=== PATIENT | male | born 1940 | race Caucasian/White ===

== ENCOUNTER 2018-09-24 15:00 | Inpatient (IN) | payer MEDICARE, BC ==
[2018-09-24 12:50] VITALS: BMI 25.2
--- NOTE | 2018-10-01 08:36 | HP ---
HISTORY OF PRESENT ILLNESS: The patient is a 77-year-old male with several year history of progressive right hip pain, which has become worse recently. He has had no specific injury. He has had progressive pain despite rest, restriction of activities, anti-inflammatory medications, and cortisone injections. The pain is now interfering with walking, getting dressed, and sleeping. PAST MEDICAL HISTORY: The patient is otherwise in good health. He has a history of polycythemia vera, followed by Dr. Godinez. He has a history of DVT several years ago. He is otherwise in good health. He does have a history of glaucoma. CURRENT MEDICATIONS: Include, 1. Hydroxyurea and anagrelide. 2. Latanoprost drops. 3. 81 mg aspirin. 4. Multivitamins. ALLERGIES: HE HAS NO KNOWN ALLERGIES. FAMILY HISTORY: Otherwise unremarkable. SOCIAL HISTORY: Otherwise unremarkable. REVIEW OF SYSTEMS: Otherwise unremarkable. PHYSICAL EXAMINATION: GENERAL: This is a healthy male. HEENT: Unremarkable. NECK: Supple. CHEST: Clear. HEART: Regular rate and rhythm. ABDOMEN: Soft, nontender. RECTAL: Deferred. GENITAL: Deferred. EXTREMITIES: Pertinent findings with the right hip. Leg lengths appeared to be equal. There is tenderness in the right groin and anterior hip. There is a right antalgic gait. There is decreased range of motion of the right hip and groin pain with internal rotation of the hip. Neurovascular exam is intact. DIAGNOSTIC STUDIES: X-rays of the right hip reveal [id number] collapse of the right hip with definite progression from previous x-rays from 1 year ago. IMPRESSION: 1. Degenerative arthritis right hip. 2. Polycythemia vera. PLAN: Right total hip replacement. The nature of the surgery, length of recovery, and potential complications such as infection, loss of motion, incomplete relief, neurovascular injury, thromboembolic phenomena, leg-length discrepancy, possible transfusion, and need for revision have been discussed in detail. Job ID: [id number]
[2018-10-02 11:40] LABS: Anion Gap 13 mmol/L (10-20); BUN (Urea Nitrogen) 31 mg/dL (8.4-25.7); Calc. Creatinine Clearance 0 mL/min (70-130); Calcium 9.3 mg/dL (7.8-10.44); Carbon Dioxide 22 mmol/L (23-31); Chloride 107 mmol/L (98-107); Estimated GFR-MDRD 74; Glucose 98 mg/dL (83-110); Potassium 4.7 mmol/L (3.5-5.1); Sodium 137 mmol/L (136-145)
[2018-10-02 11:43] LABS: #Basophils 0.1 thou/uL (0.0-0.2); #Eosinphils 0.1 thou/uL (0.0-0.7); #Lymphocytes 0.7 thou/uL (1.20-3.40); #Monocytes 0.5 thou/uL (0.11-0.59); #Neutrophils 4.9 thou/uL (1.40-6.50); %Basophils 1.2 % (0.0-1.0); %Eosinophils 1.5 % (0.0-10.0); %Lymphocytes 11.6 % (21.0-51.0); %Monocytes 7.4 % (0.0-10.0); %Neutrophils 78.3 % (42.0-75.0); Hemoglobin 13.2 g/dL (14.0-18.0); MDiff Complete? YES; Macrocytosis MODERATE=16-30 cells (100X) (0-5/hpf); Mean Corpuscular HGB CONC 34.6 g/dL (32.0-36.0); Mean Corpuscular Hemoglobin 45.3 pg (27.0-31.0); Mean Platelet Volume 7.2 fL (7.4-10.4); Platelet Count 528 thou/uL (130-400); Platelet Morphology Comment Appears Increased; Red Blood Cell (RBC) Count 2.92 mill/uL (4.70-6.10); White Blood Cell (WBC) Count 6.3 thou/uL (4.8-10.8)
[2018-10-05] MEDS ORDERED: Tranexamic Acid 1,000 MG/10 ML VIAL ONE ×2 (07:11→12:11)
[2018-10-05] MEDS ORDERED: Sodium Chloride 0.9% 100 ML ONE (07:11)
[2018-10-05] MEDS ORDERED: Fentanyl 100 MCG/2 ML VIAL ONE ×3 (08:31→12:37)
[2018-10-05] MEDS ORDERED: Midazolam HCl 2 mg/2 ml Vial ONE (08:31)
[2018-10-05] MEDS ORDERED: Bupivacaine/Epinephrine 0.25% 30 ML VIAL ONE (09:27)
[2018-10-05] MEDS ORDERED: Morphine Sulfate 2 MG/ML SYRINGE SLOW IVP PRN (11:25)
[2018-10-05] MEDS ORDERED: PACU-Morphine 4MG/ML VIAL SLOW IVP PRN (11:25)
[2018-10-05] MEDS ORDERED: Meperidine HCl/PF 25 MG/ML VIAL SLOW IVP PRN (11:25)
[2018-10-05] MEDS ORDERED: Promethazine HCl 25 MG/ML VIAL IM PRN ×2 (11:25→12:45)
[2018-10-05] MEDS ORDERED: Ondansetron HCl/PF 4 MG/2 ML Vial IVP PRN (11:25)
[2018-10-05] MEDS ORDERED: HYDROmorphone 2 MG/ML VIAL SLOW IVP PRN (11:25)
[2018-10-05] MEDS ORDERED: Promethazine HCl 25 MG/ML VIAL SLOW IVP PRN ×2 (11:25→14:24)
[2018-10-05] MEDS ORDERED: ePHEDrine 50 MG/ML VIAL ONE (11:35)
[2018-10-05] MEDS ORDERED: Lidocaine 1% PF 5 ML VIAL ONE (11:35)
[2018-10-05] MEDS ORDERED: Rocuronium Bromide 10 MG/ML (10ML VIAL) ONE (11:35)
[2018-10-05] MEDS ORDERED: Ondansetron PF 4 MG/2 ML Vial ONE (11:35)
[2018-10-05] MEDS ORDERED: PROPOFOL 200 MG/20 ML VIAL ONE (11:35)
[2018-10-05] MEDS ORDERED: Dexamethasone 20 MG/5 ML VIAL ONE (11:35)
[2018-10-05] MEDS ORDERED: Tranexamic Acid 1,000 MG in Sodium Chloride 0.9% 100 ML IVPB SCH ×2 (11:45→14:24)
--- NOTE | 2018-10-05 12:04 | RAD ---
RIGHT HIP 2 VIEWS: HISTORY: Total hip arthroplasty FINDINGS: There are recent postoperative changes of total hip arthroplasty in good position and alignment. Soft tissue air is present.
[2018-10-05] MEDS ORDERED: Naloxone HCl 0.4 mg/ml Vial IV PRN (12:45)
[2018-10-05] MEDS ORDERED: Promethazine HCl 25 MG SUPP PR PRN (12:45)
[2018-10-05] MEDS ORDERED: Zolpidem Tartrate 5 MG TAB PO PRN ×2 (12:45→14:24)
[2018-10-05] MEDS ORDERED: Bupivacaine 0.25% 10 ML VIAL EPIDURAL PRN (12:45)
[2018-10-05] MEDS ORDERED: diphenhydrAMINE 50 MG/ML VIAL IM PRN (12:45)
[2018-10-05] MEDS ORDERED: diphenhydrAMINE 25 MG CAP PO PRN ×2 (12:45→14:24)
[2018-10-05] MEDS ORDERED: Naloxone HCl 0.4 mg/ml Vial IVP PRN (12:45)
[2018-10-05] MEDS ORDERED: traMADol HCl 50 MG TAB PO PRN ×3 (12:45→14:24)
[2018-10-05] MEDS ORDERED: Ondansetron PF 4 MG/2 ML Vial IVP PRN ×2 (12:45→14:24)
[2018-10-05] MEDS ORDERED: diphenhydrAMINE 50 MG/ML VIAL IVP PRN (12:45)
[2018-10-05] MEDS ORDERED: Hydrocerin (Eucerin) Cream 120 gm Jar TOP PRN (12:45)
[2018-10-05] MEDS ORDERED: HYDROcodone/Acetaminophen 5/325 mg Tablet PO PRN (12:45)
[2018-10-05] MEDS ORDERED: Acetaminophen 325 MG TAB PO PRN (14:24)
[2018-10-05] MEDS ORDERED: HYDROcodone/Acetaminophen 10/325 mg Tablet PO PRN ×2 (14:24)
[2018-10-05] MEDS ORDERED: Fentanyl 100 MCG/2 ML VIAL SLOW IVP PRN ×2 (14:24)
[2018-10-05] MEDS: CEFAZOLIN 2 GM in Premix Bag 1 BAG IVPB SCH ×2 (15:42→23:23)
[2018-10-05] MEDS: Sodium Chloride 0.9% 1,000 ML IV SCH ×2 (15:43→23:30)
[2018-10-05] MEDS: HYDROcodone/Acetaminophen 5/325 mg Tablet PO PRN (17:01)
--- NOTE | 2018-10-05 17:19 | OP ---
DATE OF PROCEDURE: 10/05/2018 This is Jax Vizcaino PA-C dictating a report for Garett Hart MD. PREOPERATIVE DIAGNOSIS: End-stage severe degenerative bicompartmental osteoarthritis, right hip. POSTOPERATIVE DIAGNOSIS: End-stage severe degenerative bicompartmental osteoarthritis, right hip. PROCEDURE PERFORMED: Press-fit right total hip arthroplasty. SURGEON: Garett Hart MD SEDIMENTATIONIST: Jax Vizcaino PA-C. ANESTHESIA: General via endotracheal tube augmented with indwelling epidural. COMPONENTS USED: [facility] press-fit Trident PSL size 60 mm acetabular shell with a 10-degree polyethylene fixed bearing insert, size 7 press-fit Accolade II hip stem with a Biolox ceramic 36 mm femoral head with a +5 neck length. ESTIMATED BLOOD LOSS: 350. FINDINGS: End-stage severe degenerative bicompartmental disease, tfba-[id number]-vlpr arthrosis, periarticular osteophyte formation, large serous effusion, hypertrophic synovium and capsule. Input was 1200 mL crystalloid. Output was clear yellow urine. There were some little bit of blood on tissue noted. DRAINS: None. SPECIMENS: None. COMPLICATIONS: None. COUNTS: Correct. INDICATIONS FOR SURGERY: aJx is a 77-year-old white male, who has had progressive right hip, groin, and thigh pain and problem with standing and walking for the last 5 to 7 years. He has failed conservative management and elected to proceed with total hip arthroplasty as definitive treatment of his pain. PROCEDURE IN DETAIL: After informed consent was obtained in the preoperative holding area, the patient was taken to the operative suite where general anesthesia was induced. The patient was then positioned in the lateral decubitus position. The hip was then prepped and draped in usual sterile fashion. The patient received preoperative antibiotics. Prior to incision, time-out was called and all members of the surgical team agreed upon site, surgeon, and patient. After this, a longitudinal incision was made directly over the trochanter, noted by palpation extending 2 fingerbreadths above and below the trochanter. The deeper subcutaneous layer was undermined with Bovie electrocautery. The iliotibial band was encountered and incised sharply and the plane below this was developed bluntly. A Charnley retractor was placed to hold this opened. The lateral aspect of the trochanter and the abductor muscles were encountered and then reflected anteriorly off the trochanter using Bovie electrocautery. Once this was completed, the anterior capsule was then encountered and identified and copious capsulotomy was carried out, exposing the femoral neck and head. Dislocation maneuver was then performed and an in situ provisional neck cut was then made using the oscillating saw. Attention was then turned to acetabular preparation. Sequential reaming was carried out up to the appropriate diameter and a trial was then malleted into place with good firm resistance and no pullout. The permanent acetabular shell was then malleted squarely into place, as was the appropriate liner. Once completed, the wound was copiously irrigated and attention was then turned to femoral preparation. Flexion and external rotation were performed of the exposed thigh and femoral elevators were then placed at the proximal aspect of the wound. Canal finder was used to establish the length of the canal and sequential reaming was carried out, followed by broaching. Once the appropriate stability was established with the trial broaches with flexion, extension and rotational stability, we did trial with neutral and 2 mm offset incremental necks. Once the appropriate size was decided upon, with good stability noted with flexion, extension, internal and external rotation and shuck being negative, we removed the femoral trial broach and malletted into place the permanent prosthesis with good firm fit, which was also stable to rotation. Again, the hip felt very stable to flexion, extension, internal and external rotation. Leg lengths appeared near anatomic clinically and we were quite happy with prosthesis placement. Copious irrigation was then carried out through the entirety of the wound. Primary closure of the abductors was accomplished with interrupted #2 Vicryl [id number] stitches and the IT band was then closed with interrupted #2 Vicryl, oversewn with a #2 running barbed Quill stitch. Subcutaneous fascia was closed with running barbed Quill stitch and a subcuticular Monocryl barbed Quill stitch was used for skin closure and augmented with skin cement. A sterile dressing was applied. The procedure was terminated without any complication. All counts were correct. The patient was awakened in the operative suite and taken to the recovery room in stable condition. Job ID: [id number] [facility]
[2018-10-05] MEDS: Ketorolac Tromethamine 30 MG/ML VIAL IVP SCH ×2 (17:57→23:21)
[2018-10-05] MEDS ORDERED: Vancomycin HCl 1 GM in Premix Bag 1 BAG IVPB SCH (20:00)
--- NOTE | 2018-10-06 02:59 | CON ---
DATE OF CONSULTATION: REASON FOR CONSULTATION: Medical management. HISTORY OF PRESENT ILLNESS: The patient is a 77-year-old male, with degenerative joint disease of the hip, who is status post hip joint replacement. Postoperatively, the patient is doing well. He reports a 5/10 to 6/10 pain. Otherwise, he has no other major complaints. REVIEW OF SYSTEMS: Essentially negative. PAST MEDICAL HISTORY: Notable for polycythemia vera, followed by Dr. Godinez as well as some glaucoma. PAST SURGICAL HISTORY: Cataract ectomy 10 years ago. FAMILY HISTORY: No known medical problem at the time of this admission. ALLERGIES: NONE. HOME MEDICATIONS: 1. Xalatan eyedrops 0.005% one drop each eye daily. 2. 2.5 mg p.o. daily. 3. Aspirin 81 mg daily. 4. Hydroxyurea 1500 mg p.o. daily. ALLERGIES: NONE. PHYSICAL EXAMINATION: VITAL SIGNS: Temperature 97.8, pulse 60, respirations 18, O2 saturation 98% on room air, BP 133/78. GENERAL APPEARANCE: Age-appropriate male, in no distress. He is awake, alert, oriented, pleasant, and cooperative. HEART: Regular rate and rhythm. No murmurs, gallops, or rubs. LUNGS: Clear to auscultation bilaterally. No wheezes or rales. ABDOMEN: Soft, nontender, and nondistended. Positive bowel sounds. No masses. No organomegaly. EXTREMITIES: Warm and dry. No significant edema. Good pulses. Good cap refill. IMPRESSION AND PLAN: 1. Postop right hip replacement per Ortho. 2. Polycythemia vera. Continue with the hydroxyurea and anagrelide. No special precautions to be taken at this point. 3. History of glaucoma. Continue the Xalatan eyedrops. Job ID: [id number] MTDD
[2018-10-06 04:56] LABS: Mean Corpuscular HGB CONC 34.4 g/dL (32.0-36.0); Mean Corpuscular Hemoglobin 45.4 pg (27.0-31.0); Mean Platelet Volume 7.1 fL (7.4-10.4); Platelet Count 446 thou/uL (130-400); RBC Distribution Width 13.2 % (11.5-14.5); Red Blood Cell (RBC) Count 2.42 mill/uL (4.70-6.10)
[2018-10-06] MEDS: fentaNYL Citrate/PF 500 MCG, Bupivacaine 10 ML in Sodium Chloride 0.9% 80 ML EPIDURAL SCH ×2 (05:15→22:15)
[2018-10-06] MEDS: Ketorolac Tromethamine 30 MG/ML VIAL IVP SCH ×3 (05:22→17:29)
[2018-10-06] MEDS: Senokot S 8.6-50 MG TAB PO SCH ×2 (08:31→20:39)
[2018-10-06] MEDS: Aspirin Chewable 81 MG TAB PO SCH (08:32)
[2018-10-06] MEDS: Multivitamin W/ Minerals 1 TAB PO SCH (08:32)
[2018-10-06] MEDS: Ferrous Gluconate 324 MG TAB PO SCH ×2 (08:32→20:39)
[2018-10-06] MEDS: Hydroxyurea 500 MG CAP PO SCH (08:32)
[2018-10-06] MEDS: Anagrelide HCl 0.5 MG CAP PO SCH (08:33)
[2018-10-06] MEDS: Latanoprost 0.005% Ophth Soln 2.5 ml Bottle EA EYE SCH (08:33)
[2018-10-06] MEDS ORDERED: Enoxaparin Sodium 40 MG/0.4 ML SYRINGE SC SCH (09:00)
[2018-10-06] MEDS: Sodium Chloride 0.9% 1,000 ML IV SCH ×2 (10:56→20:34)
--- NOTE | 2018-10-06 15:07 | PRG ---
DATE OF SERVICE: 10/06/2018 SUBJECTIVE: Jax is a 77-year-old white male, postop day 1 from right total hip arthroplasty. He has no complaints and he ambulated approximately 300 feet today. Pain has been well controlled. OBJECTIVE: VITAL SIGNS: Temperature 97.8, pulse 72, respiratory rate 16 and nonlabored, and blood pressure is 103/71. GENERAL: He is alert and oriented to person, place, time, situation, and grossly nonfocal. Appropriate with examiner. EXTREMITIES: His incision is clean and closed without erythema. No strike through. He is neurovascularly intact in both lower extremities. LABORATORY DATA: Hemoglobin and hematocrit 11.0 and 32.0. IMPRESSION: A 77-year-old white male, postop day #1, right total hip arthroplasty, doing well. PLAN: Continue current care. Probable discharge home tomorrow. Job ID: [id number]
[2018-10-06] MEDS: HYDROcodone/Acetaminophen 5/325 mg Tablet PO PRN (15:28)
[2018-10-07] MEDS: Ketorolac Tromethamine 30 MG/ML VIAL IVP SCH ×3 (01:00→11:51)
[2018-10-07] MEDS: Sodium Chloride 0.9% 1,000 ML IV SCH ×2 (05:58→16:03)
[2018-10-07 06:11] LABS: Hemoglobin 10.8 g/dL (14.0-18.0); Mean Corpuscular HGB CONC 34.9 g/dL (32.0-36.0); Mean Corpuscular Hemoglobin 45.3 pg (27.0-31.0); Mean Platelet Volume 6.9 fL (7.4-10.4); Platelet Count 515 thou/uL (130-400); RBC Distribution Width 13.1 % (11.5-14.5); Red Blood Cell (RBC) Count 2.38 mill/uL (4.70-6.10); White Blood Cell (WBC) Count 4.8 thou/uL (4.8-10.8)
[2018-10-07] MEDS: Multivitamin W/ Minerals 1 TAB PO SCH (09:14)
[2018-10-07] MEDS: Anagrelide HCl 0.5 MG CAP PO SCH (09:14)
[2018-10-07] MEDS: Senokot S 8.6-50 MG TAB PO SCH ×2 (09:15→20:09)
[2018-10-07] MEDS: Hydroxyurea 500 MG CAP PO SCH (09:15)
[2018-10-07] MEDS: Latanoprost 0.005% Ophth Soln 2.5 ml Bottle EA EYE SCH (09:15)
[2018-10-07] MEDS: Ferrous Gluconate 324 MG TAB PO SCH ×2 (09:15→20:07)
[2018-10-07] MEDS: Aspirin Chewable 81 MG TAB PO SCH (09:15)
[2018-10-07] MEDS ORDERED: Rivaroxaban 10 MG TAB PO SCH ×2 (12:42→13:00)
[2018-10-07] MEDS: HYDROcodone/Acetaminophen 5/325 mg Tablet PO PRN (20:08)
[2018-10-08] MEDS ORDERED: Rivaroxaban 10 MG TAB PO SCH (09:00)
[2018-10-08] MEDS ORDERED: Tamsulosin HCl 0.4 MG CAP PO ONE (09:00)
[2018-10-08] MEDS: Anagrelide HCl 0.5 MG CAP PO SCH (09:05)
[2018-10-08] MEDS: Aspirin Chewable 81 MG TAB PO SCH (09:06)
[2018-10-08] MEDS: Hydroxyurea 500 MG CAP PO SCH (09:07)
[2018-10-08] MEDS: Ferrous Gluconate 324 MG TAB PO SCH (09:07)
[2018-10-08] MEDS: Latanoprost 0.005% Ophth Soln 2.5 ml Bottle EA EYE SCH (09:07)
[2018-10-08] MEDS: Senokot S 8.6-50 MG TAB PO SCH (09:07)
[2018-10-08] MEDS: Multivitamin W/ Minerals 1 TAB PO SCH (09:08)
[2018-10-08 09:53] VITALS: BP 121/78; TEMP 97.7
[2018-10-08 10:15] LABS: Red Blood Cell (RBC) Count 2.43 mill/uL (4.70-6.10); White Blood Cell (WBC) Count 5.4 thou/uL (4.8-10.8)
[2018-10-08 10:16] LABS: Hemoglobin 10.8 g/dL (14.0-18.0); Mean Corpuscular HGB CONC 34.1 g/dL (32.0-36.0); Mean Corpuscular Hemoglobin 44.4 pg (27.0-31.0); Mean Platelet Volume 6.9 fL (7.4-10.4); Platelet Count 534 thou/uL (130-400)
== END 2018-10-08 09:49 | disposition home or self-care (01) | DRG 470 ==
LOC: SURG A 10-05 06:54 → SJJU 10-05 14:19
PROVIDERS: ADMIT Orthopaedic Surgery; ATTEND Orthopaedic Surgery
PROC: 0SR904A Replacement of Right Hip Joint with Ceramic on Polyethylene Synthetic Substitute, Uncemented, Open Approach (ICD-10-PCS; principal; 2018-10-05)
DX: M16.11 Unilateral primary osteoarthritis, right hip (principal); D45 Polycythemia vera; Z79.899 Other long term (current) drug therapy; Z79.82 Long term (current) use of aspirin; H40.9 Unspecified glaucoma; Z86.718 Personal history of other venous thrombosis and embolism
CPT/HCPCS: 36415; 80048; 81001; 85025; 85027; 85060; 85610; 86850; 86900; 86901; 87081; 93005; 93010; J0690; J1100; J1650; J1885; J2001; J2250; J2405; J2704; J3010; J3370; J3490

== ENCOUNTER 2018-10-02 09:37 | Outpatient (CLI) | payer MEDICARE, BC ==
[2018-10-02 11:23] LABS: INR-International Normal Ratio 1.3; Prothrombin Time 16.3 SEC (12.0-14.7)
[2018-10-02 11:26] LABS: Bilirubin Negative (Negative); Blood, Urine Negative (Negative); Clarity CLEAR (Clear); Glucose, Urine (Dipstick) Negative (Negative); Leukocyte Negative (Negative); Nitrite Negative (Negative); Protein, Urine (Dipstick) Negative (Neg-Trace); Specific Gravity, Urine 1.022 (1.002-1.036)
[2018-10-02 11:29] LABS: Bacteria/HPF None Seen HPF (None Seen); Hyaline Casts/LPF 0-3 HYALINE CAST LPF (0-3 Hyaline); RBC/HPF 0-3 HPF (0-3); Squamous Epithelial None Seen HPF (0-3); WBC/HPF None Seen HPF (0-3)
--- NOTE | 2018-10-02 21:28 | EKG ---
Test Reason : Blood Pressure : / mmHG Vent. Rate : 067 BPM Atrial Rate : 067 BPM P-R Int : 118 ms QRS Dur : 094 ms QT Int : 408 ms P-R-T Axes : 040 -52 053 degrees QTc Int : 431 ms Normal sinus rhythm Incomplete right bundle branch block Left anterior fascicular block Abnormal ECG When compared with ECG of 31-MAR-2016 14:13, Premature atrial complexes are no longer Present Incomplete right bundle branch block is now Present Confirmed by Jas WADDELL ([id number]) on 10/02/2018 9:28:02 PM Referred By: HAYES Confirmed By:Jas WADDELL
== END 2018-10-02 09:38 | disposition home or self-care (01) ==
LOC: LABBT 09:37
PROVIDERS: ATTEND Orthopaedic Surgery
DX: Z01.818 Encounter for other preprocedural examination (principal)
CPT/HCPCS: 81001; 85610; 87081; 93005; 93010

== ENCOUNTER 2019-07-29 13:30 | Outpatient (CLI) | payer MEDICARE, BC ==
--- NOTE | 2019-07-29 14:13 | ULT ---
Exam: Left lower extremity venous ultrasound with Doppler HISTORY: Left leg pain x1 month. COMPARISON: None. TECHNIQUE: Grayscale, color flow, Doppler imaging and spectral waveform analysis performed from the l eft lower extremity venous system. FINDINGS: There is compressibility, presence of flow and augmentation in the common femoral vein, femoral vein and popliteal vein. There is flow the greater saphenous vein, profunda femoral vein. There is flow in the posterior tibial vein. IMPRESSION: No evidence of thrombus in the left lower extremity venous system. Transcribed Date/Time: 07/29/2019 3:07 PM
== END 2019-07-29 13:31 | disposition home or self-care (01) ==
LOC: SCSULT 13:30
PROVIDERS: ATTEND Family Medicine
DX: L03.116 Cellulitis of left lower limb (principal); R60.0 Localized edema

== ENCOUNTER 2019-08-30 21:09 | Emergency (ER) | payer MEDICARE, BC ==
[2019-08-30 23:10] LABS: ALT (SGPT) 9 U/L (8-55); AST (SGOT) 15 U/L (5-34); Albumin 3.8 g/dL (3.4-4.8); Alkaline Phosphatase 47 U/L (40-110); Anion Gap 12 mmol/L (10-20); BUN (Urea Nitrogen) 30 mg/dL (8.4-25.7); Bilirubin, Total 0.7 mg/dL (0.2-1.2); Calc. Creatinine Clearance 0 mL/min (70-130); Carbon Dioxide 22 mmol/L (23-31); Chloride 108 mmol/L (98-107); Estimated GFR-MDRD 57; Globulin 2.6 g/dL (2.4-3.5); Glucose 108 mg/dL (83-110); Protein, Total 6.4 g/dL (5.8-8.1); Sodium 138 mmol/L (136-145)
[2019-08-30 23:27] LABS: #Eosinphils 0.1 thou/uL (0.0-0.7); #Lymphocytes 0.7 thou/uL (1.20-3.40); #Monocytes 0.2 thou/uL (0.11-0.59); #Neutrophils 2.2 thou/uL (1.40-6.50); %Eosinophils 1.7 % (0.0-10.0); %Lymphocytes 21.4 % (21.0-51.0); %Monocytes 7.5 % (0.0-10.0); %Neutrophils 69.4 % (42.0-75.0); Mean Corpuscular HGB CONC 34.7 g/dL (32.0-36.0); Mean Corpuscular Hemoglobin 49.3 pg (27.0-31.0); Mean Platelet Volume 7.6 fL (7.4-10.4); Platelet Count 250 thou/uL (130-400); RBC Distribution Width 13.9 % (11.5-14.5); Red Blood Cell (RBC) Count 2.02 mill/uL (4.70-6.10); White Blood Cell (WBC) Count 3.1 thou/uL (4.8-10.8)
[2019-08-30 23:28] LABS: MDiff Complete? YES; Macrocytosis MODERATE=16-30 cells (100X) (0-5/hpf); Ovalocytes SLIGHT = 2-5 cells (100X) (0-1/hpf); Platelet Morphology Comment Appears Adequate; Tear Drops SLIGHT = 2-5 cells (100X) (0-1/hpf)
[2019-08-31 01:56] LABS: Bilirubin Negative (Negative); Blood, Urine Negative (Negative); Clarity Clear (Clear); Glucose, Urine (Dipstick) Normal (Negative); Leukocyte Negative Leu/uL (Negative); Nitrite Negative (Negative); Protein, Urine (Dipstick) 10 mg/dL (Neg-Trace); Urobilinogen Normal mg/dL (Less than 2)
--- NOTE | 2019-08-31 11:35 | CT ---
CT OF THE BRAIN WITHOUT CONTRAST: INDICATION: History of intermittent confusion today. COMPARISON: Prior exam dated 03/31/2016. FINDINGS: There is generalized cerebral and cerebellar atrophy that is slightly more pronounced than on the jeimy or exam. There is mild chronic small-vessel white matter ischemic change. Septum pellucidum and thi rd ventricle are midline. Skull and extracranial soft tissues appear within normal limits. IMPRESSION: 1. No acute intracranial abnormality. 2. Mild generalized cerebral and cerebellar atrophy slightly more pronounced than on the prior exam. POS: [facility]
--- NOTE | 2019-08-31 12:32 | RAD ---
PORTABLE CHEST 1 VIEW: DATE: 08/31/2019. TIME: 12:35 AM. HISTORY: Altered mental status. COMPARISON: 03/31/2016. FINDINGS: Heart size is stable. The aorta is tortuous. No focal areas of consolidation, pneumothoraces, flaquita pulmonary edema, or pleural effusions are seen. Old fractures of the left clavicle in the right sca pula are again seen. IMPRESSION: No acute process. POS: RUBÉNA
== END 2019-08-31 03:26 | disposition home or self-care (01) ==
LOC: ERS 21:09
DX: R41.82 Altered mental status, unspecified (principal); D45 Polycythemia vera
CPT/HCPCS: 36415; 70450; 71045; 80053; 81003; 84484; 85025; 93005

== ENCOUNTER 2019-09-20 | Outpatient (CLI) | payer MEDICARE, BC | END 2019-09-20 13:51 | disposition home or self-care (01) | DX: R41.82 Altered mental status, unspecified (principal); G93.89 Other specified disorders of brain ==

== ENCOUNTER 2019-10-18 09:29 | Outpatient (CLI) | payer MEDICARE, BC ==
--- NOTE | 2019-10-18 10:10 | ULT ---
US Renal Bilateral STANDARD: 10/18/2019 12:00 AM CLINICAL HISTORY: Acute renal failure. STUDY: Renal ultrasound COMPARISON: None. FINDINGS: Right kidney: Echogenicity: Normal. Masses/cysts: None. Hydronephrosis: None. Calcifications: None. Length: 10.7 cm Left kidney: Echogenicity: Normal. Masses/cysts: 3.1 cm cyst Hydronephrosis: Mild Calcifications: None. Length: 11.2 cm Limited visualization of the urinary bladder is unremarkable. IMPRESSION: 1. Mild left hydronephrosis 2. Left renal cyst
== END 2019-10-18 09:30 | disposition home or self-care (01) ==
LOC: BICULT 09:29
PROVIDERS: ATTEND Internal Medicine Nephrology
DX: N17.9 Acute kidney failure, unspecified (principal); N28.1 Cyst of kidney, acquired; N13.30 Unspecified hydronephrosis
CPT/HCPCS: 76770

== ENCOUNTER 2019-12-29 13:30 | Emergency (ER) | payer MEDICARE, BC ==
--- NOTE | 2019-12-29 14:12 | RAD ---
CHEST ONE VIEW: 12/29/19 HISTORY: Chest pain. COMPARISON: Radiograph 12/09/19. FINDINGS: Heart size is upper limits of normal. Pulmonary artery is mildly distended. No confluent air space consolidation, pneumothorax or effusion. IMPRESSION: No acute intrathoracic abnormality. POS: [facility]
[2019-12-29 14:33] LABS: Hemoglobin 13.8 g/dL (14.0-18.0); Mean Corpuscular HGB CONC 29.3 g/dL (32.0-36.0); Mean Corpuscular Hemoglobin 28.5 pg (27.0-31.0); Mean Corpuscular Volume 97.2 fL (78.0-98.0); Mean Platelet Volume 8.3 fL (7.4-10.4); Platelet Count 970 thou/uL (130-400); Red Blood Cell (RBC) Count 4.84 mill/uL (4.70-6.10); White Blood Cell (WBC) Count 27.3 thou/uL (4.8-10.8)
[2019-12-29 14:47] LABS: Anisocytosis MODERATE=16-30 cells (100X) (0-5/hpf); Band 10 % (5-11); Eosinophils 1 % (0-10); Hypochromia SLIGHT = 6-15 cells (100X) (0-5/hpf); Large Platelets SLIGHT; Lymphocytes 2 % (21-51); MDiff Complete? YES; Metamyelocyte 2 % (0-0); Monocytes 5 % (0-10); Neutrophil 78 % (42-75); Ovalocytes SLIGHT = 2-5 cells (100X) (0-1/hpf); Platelet Morphology Comment Appears Increased; Polychromasia SLIGHT = 2-3 cells (100X) (0-2/hpf); Reactive Lymphocytes 1 % (0-10); Tear Drops SLIGHT = 2-5 cells (100X) (0-1/hpf)
[2019-12-29 14:48] LABS: ALT (SGPT) 13 U/L (8-55); AST (SGOT) 24 U/L (5-34); Albumin 3.8 g/dL (3.4-4.8); Alkaline Phosphatase 99 U/L (40-110); Anion Gap 12 mmol/L (10-20); BUN (Urea Nitrogen) 33 mg/dL (8.4-25.7); Bilirubin, Total 0.5 mg/dL (0.2-1.2); Calc. Creatinine Clearance 0 mL/min (70-130); Calcium 9.2 mg/dL (7.8-10.44); Carbon Dioxide 26 mmol/L (23-31); Chloride 106 mmol/L (98-107); Estimated GFR-MDRD 49; Globulin 3.3 g/dL (2.4-3.5); Glucose 78 mg/dL (83-110); Potassium 4.3 mmol/L (3.5-5.1); Protein, Total 7.1 g/dL (5.8-8.1); Sodium 140 mmol/L (136-145)
--- NOTE | 2019-12-29 14:59 | ULT ---
Bilateral lower extremity venous Doppler ultrasound: 12/29/2019 COMPARISON: None available HISTORY: Weakness, edema, swelling, assess for DVT TECHNIQUE: Multiplanar grayscale sonographic imaging of the venous structures of bilateral lower extr emities obtained with color flow and spectral analysis FINDINGS: Bilateral common femoral veins, greater saphenous veins, profunda femoral veins, femoral ve ins, popliteal veins, and posterior tibial veins are patent. There is normal blood flow, augmentation, and compression within the deep venous system bilaterally. No evidence for DVT on eithe r side IMPRESSION: No evidence for deep venous thrombosis of either lower extremity.
[2019-12-29] MEDS ORDERED: Doxycycline 100 MG CAP PO SCH (15:45)
--- NOTE | 2020-01-01 13:02 | EKG ---
Test Reason : Blood Pressure : / mmHG Vent. Rate : 065 BPM Atrial Rate : 065 BPM P-R Int : 160 ms QRS Dur : 096 ms QT Int : 430 ms P-R-T Axes : 029 -46 015 degrees QTc Int : 447 ms Normal sinus rhythm Incomplete right bundle branch block Left anterior fascicular block Minimal voltage criteria for LVH, may be normal variant Abnormal ECG Confirmed by MANUEL RIOJAS ([id number]), research editor ELSY GONZALES ([id number]) on 01/01/2020 1:01:39 PM Referred By: Confirmed By:MANUEL Peck
== END 2019-12-29 16:40 | disposition home or self-care (01) ==
LOC: ERS 13:30
DX: L03.115 Cellulitis of right lower limb (principal)
CPT/HCPCS: 36415; 71045; 80053; 83605; 83880; 84484; 85025; 85652; 86140; 93005; 93970; 94760

== ENCOUNTER 2020-02-21 13:41 | Emergency (ER) | payer MEDICARE, BC | END 2020-02-21 15:36 | disposition left against medical advice (07) | LOC: ERS 13:41 | DX: R23.0 Cyanosis (principal) | CPT/HCPCS: 87070; 87077; 87186; 87205; 99283 ==

== ENCOUNTER 2020-03-13 11:54 | Observation (INO) | payer MEDICARE, BC ==
[2020-03-13] MEDS ORDERED: Aspirin Chewable 81 MG TAB ONE (12:48)
[2020-03-13 13:29] LABS: Mean Corpuscular HGB CONC 30.6 g/dL (32.0-36.0); Mean Corpuscular Hemoglobin 25.6 pg (27.0-31.0); Mean Corpuscular Volume 83.6 fL (78.0-98.0); Mean Platelet Volume 9.4 fL (7.4-10.4); Platelet Count 513 thou/uL (130-400); RBC Distribution Width 20.6 % (11.5-14.5); Red Blood Cell (RBC) Count 5.85 mill/uL (4.70-6.10); White Blood Cell (WBC) Count 24.6 thou/uL (4.8-10.8)
[2020-03-13 13:41] LABS: ALT (SGPT) 12 U/L (8-55); AST (SGOT) 34 U/L (5-34); Albumin 3.5 g/dL (3.4-4.8); Alkaline Phosphatase 96 U/L (40-110); Anion Gap 15 mmol/L (10-20); BUN (Urea Nitrogen) 27 mg/dL (8.4-25.7); Bilirubin, Total 0.7 mg/dL (0.2-1.2); Calc. Creatinine Clearance 0 mL/min (70-130); Carbon Dioxide 23 mmol/L (23-31); Chloride 103 mmol/L (98-107); Estimated GFR-MDRD 67; Globulin 3.5 g/dL (2.4-3.5); Glucose 92 mg/dL (83-110); Potassium 4.5 mmol/L (3.5-5.1); Sodium 136 mmol/L (136-145)
[2020-03-13 13:54] LABS: Anisocytosis SLIGHT = 6-15 cells (100X) (0-5/hpf); Band 33 % (5-11); Eosinophils 2 % (0-10); Hypochromia SLIGHT = 6-15 cells (100X) (0-5/hpf); Lymphocytes 1 % (21-51); MDiff Complete? YES; Metamyelocyte 1 % (0-0); Monocytes 9 % (0-10); Myelocyte 2 % (0-0); Neutrophil 49 % (42-75); Ovalocytes SLIGHT = 2-5 cells (100X) (0-1/hpf); Platelet Morphology Comment Appears Increased; Polychromasia MODERATE = 3-4 cells (100X) (0-2/hpf); Reactive Lymphocytes 3 % (0-10); Schistocytes SLIGHT = 2-5 cells (100X) (0-1/hpf); Tear Drops SLIGHT = 2-5 cells (100X) (0-1/hpf)
--- NOTE | 2020-03-13 14:17 | ULT ---
ULTRASOUND DOPPLER DUPLEX VENOUS BILATERAL LOWER EXTREMITIES: DATE: 03/13/2020 HISTORY: 79-year-old male with bilateral lower extremity erythema and edema TECHNIQUE: Grayscale, color-flow, and spectral analysis, of major veins of bilateral lower extremities. FINDINGS: There is demonstration of blood flow with normal compressibility, of the bilateral common femoral, pr ofunda femoral, greater saphenous, femoral, popliteal, and posterior tibial, veins. IMPRESSION: Negative. No deep venous thrombosis of bilateral lower extremities.
[2020-03-13] MEDS ORDERED: Cefepime 2 GM VIAL ONE (15:01)
--- NOTE | 2020-03-13 15:26 | PDOC.HHP ---
Hospitalist HPI - History of Present Illness Bilateral lower extremity cellulitis History of Present Illness: Patient is given cefepime, vancomycin, aspirin ED Course: Patient has history of polycythemia vera, patient has home health nurse, patient was having gradually increasing bilateral lower extremity erythema and edema, for last few days patient was having weeping of serosanguineous fluid, no fever, in the emergency room patient has negative ultrasound for DVT, routine l aboratory parameters was consistent with leukocytosis. Patient is given cefepime and vancomycin emergency room. Hospitalist ROS - Review of Systems Constitutional: reports: weakness. denies: fever, chills, sweats, malaise, other Eyes: denies: pain, vision change, conjunctivae inflammation, eyelid inflammat ion, redness, other ENT: denies: ear pain, ear discharge, nose pain, nose discharge, nose congestion, mouth pain, mouth swelling, throat pain, throat swelling, other Respiratory: denies: cough, dry, shortness of breath, hemoptysis, SOB with excertion, pleuritic pain, sputum, wheezing, other Cardiovascular: reports: edema. denies: chest pain, palpitations, orthopnea, paroxysmal noc. dyspnea, light headedness, other Gastrointestinal: denies: nausea, vomiting, abdominal pain, diarrhea, constipation, melena, hematochezia, other Genitourinary: denies: dysuria, frequency, incontinence, hematuria, retention, other Musculoskeletal: denies: neck pain, shoulder pain, arm pain, back pain, hand pain, leg pain, foot pain, other Skin: reports: rash, lesions. denies: charisse, bruising, other Neurological: denies: weakness, numbness, incoordination, change in speech, confusion, seizures, other Hospitalist History - Past Medical History Other Medical History: Polycythemia vera Bilateral lower extremity cellulitis Sensorineural deafness Mild dementia Benign enlargement of prostate Osteoarthritis History of DVT in the past - Past Surgical History Other Surgical History: Right hip replacement - Family History Other Family History: Mother had history of esophageal cancer, one of his sister has ovarian cancer - Social History Alcohol: reports: None Drugs: reports: none Other Social History: Patient is , occasional alcohol, no drug abuse, previously patient was professor at [employer], he is retired in 2006 - Exam General Appearance: NAD, awake alert General - other findings: Hard of hearing Eye: PERRL, anicteric sclera ENT: normocephalic atraumatic, no oropharyngeal lesions Neck: supple, symmetric, no JVD, no thyromegaly Heart: RRR, no murmur, no gallops, no rubs Respiratory: no wheezes, no rales, no ronchi Gastrointestinal: soft, non-tender, non-distended, normal bowel sounds Extremities: 2+ LE edema Extremities - other findings: Bilateral lower extremity erythema, tenderness, weeping of serosanguineous Skin: normal turgor, no lesions Neurological: cranial nerve grossly intact, normal sensation to touch, no focal deficits Musculoskeletal: normal tone, normal strength Psychiatric: normal affect, normal behavior, A&O x 3 Hospitalist Results - Labs Result Diagrams: 03/13/20 13:04 03/13/20 13:04 Lab results: WBC 24.6 thou/uL (4.8-10.8) H 03/13/20 13:04 Hgb 15.0 g/dL (14.0-18.0) 03/13/20 13:04 Hct 48.9 % (42.0-52.0) 03/13/20 13:04 MCV 83.6 fL (78.0-98.0) 03/13/20 13:04 Plt Count 513 thou/uL (130-400) H 03/13/20 13:04 Band Neuts % (Manual) 33 % (5-11) H 03/13/20 13:04 Sodium 136 mmol/L (136-145) 03/13/20 13:04 Potassium 4.5 mmol/L (3.5-5.1) 03/13/20 13:04 Chloride 103 mmol/L (98-107) 03/13/20 13:04 Carbon Dioxide 23 mmol/L (23-31) 03/13/20 13:04 BUN 27 mg/dL (8.4-25.7) H 03/13/20 13:04 Creatinine 1.06 mg/dL (0.7-1.3) 03/13/20 13:04 Glucose 92 mg/dL (83-110) 03/13/20 13:04 Lactic Acid 1.2 mmol/L (0.5-2.2) 03/13/20 13:04 Calcium 9.0 mg/dL (7.8-10.44) 03/13/20 13:04 Total Bilirubin 0.7 mg/dL (0.2-1.2) 03/13/20 13:04 AST 34 U/L (5-34) 03/13/20 13:04 ALT 12 U/L (8-55) 03/13/20 13:04 Alkaline Phosphatase 96 U/L (40-110) 03/13/20 13:04 Serum Total Protein 7.0 g/dL (5.8-8.1) 03/13/20 13:04 Albumin 3.5 g/dL (3.4-4.8) 03/13/20 13:04 - Radiology Interpretation US - venous Status: image reviewed by me Additional Comment: Negative for DVT Hospitalist H&P A/P - Problem (1) Bilateral lower leg cellulitis Code(s): L03.116 - CELLULITIS OF LEFT LOWER LIMB; L03.115 - CELLULITIS OF RIGHT LOWER LIMB Status: Acute (2) Lower extremity venous stasis Code(s): I87.8 - OTHER SPECIFIED DISORDERS OF VEINS Status: Chronic (3) Polycythemia vera Code(s): D45 - POLYCYTHEMIA VERA Status: Chronic - Plan Plan: Observation to medical floor Patient will need broad-spectrum antibiotic coverage with cefepime 2 g every 12 hourly and pharmacy to adjust vancomycin dose to cover gram-positive and gram- negative organisms Patient is advised to keep lower extremity elevated Wound care team will be consulted His home medication will be reconciled DVT prophylaxis Lovenox 40 mg subcu daily GI prophylaxis Pepcid 20 mg twice daily CODE STATUS patient is full code Disposition plan based on clinical course.
[2020-03-13] MEDS ORDERED: Vancomycin 1 GM/200 ML BAG ONE (16:30)
[2020-03-13] MEDS ORDERED: Calcium Carbonate 500 MG ChewTAB PO PRN (17:01)
[2020-03-13] MEDS ORDERED: Loratadine 10 MG TAB PO PRN (17:01)
[2020-03-13] MEDS ORDERED: Ondansetron PF 4 MG/2 ML Vial IVP PRN (17:01)
[2020-03-13] MEDS ORDERED: Bisacodyl 10 MG SUPP PR PRN (17:01)
[2020-03-13] MEDS ORDERED: hydrALAZINE 20 MG/ML VIAL SLOW IVP PRN (17:01)
[2020-03-13] MEDS ORDERED: Diabetic Tussin 200 MG/10 ML UDCUP PO PRN (17:01)
[2020-03-13] MEDS ORDERED: Loperamide HCl 2 MG CAP PO PRN (17:01)
[2020-03-13] MEDS ORDERED: Zolpidem Tartrate 5 MG TAB PO PRN (17:01)
[2020-03-13] MEDS ORDERED: Guaifenesin DM 100-10/5 ML UDCUP PO PRN (17:01)
[2020-03-13] MEDS ORDERED: Acetaminophen 325 MG TAB PO PRN (17:01)
[2020-03-13] MEDS ORDERED: Cepastat Lozenges 1 LOZ PO PRN (17:01)
[2020-03-13] MEDS ORDERED: Senokot S 8.6-50 MG TAB PO PRN (17:01)
[2020-03-13] MEDS ORDERED: Ondansetron ODT 4 MG TAB PO PRN (17:01)
[2020-03-13] MEDS ORDERED: Benzonatate 100 MG CAP PO PRN (17:01)
[2020-03-13] MEDS ORDERED: Sodium Chloride 0.65% Nasal 44 ML BOT EA NARE PRN (17:01)
[2020-03-13] MEDS: HYDROcodone/Acetaminophen 5/325 mg Tablet PO PRN ×2 (18:15→21:58)
[2020-03-13] MEDS: Morphine 2 MG/ML VIAL SLOW IVP PRN (18:17)
[2020-03-13 18:43] VITALS: BMI 25.5
[2020-03-13] MEDS: Famotidine 20 MG TAB PO SCH (21:06)
[2020-03-14] MEDS: Vancomycin HCl 1.25 GM in Sodium Chloride 0.9% 250 ML 250 ML IVPB SCH ×2 (01:27→14:20)
[2020-03-14] MEDS ORDERED: Cefepime 2 GM in Sodium Chloride 0.9% 100 ML IVPB SCH (04:00)
[2020-03-14] MEDS: Morphine 2 MG/ML VIAL SLOW IVP PRN (04:27)
[2020-03-14] MEDS: HYDROcodone/Acetaminophen 5/325 mg Tablet PO PRN ×4 (06:02→13:08)
[2020-03-14 06:14] LABS: ALT (SGPT) 12 U/L (8-55); AST (SGOT) 24 U/L (5-34); Albumin 2.9 g/dL (3.4-4.8); Alkaline Phosphatase 78 U/L (40-110); Anion Gap 12 mmol/L (10-20); BUN (Urea Nitrogen) 21 mg/dL (8.4-25.7); Bilirubin, Total 0.3 mg/dL (0.2-1.2); Calc. Creatinine Clearance 91 mL/min (70-130); Calcium 8.3 mg/dL (7.8-10.44); Carbon Dioxide 22 mmol/L (23-31); Chloride 106 mmol/L (98-107); Estimated GFR-MDRD Greater than 90; Globulin 2.6 g/dL (2.4-3.5); Glucose 90 mg/dL (83-110); Potassium 4.2 mmol/L (3.5-5.1); Protein, Total 5.5 g/dL (5.8-8.1); Sodium 136 mmol/L (136-145)
[2020-03-14 06:43] LABS: Band 24 % (5-11); Hemoglobin 13.4 g/dL (14.0-18.0); Lymphocytes 4 % (21-51); MDiff Complete? YES; Mean Corpuscular HGB CONC 31.5 g/dL (32.0-36.0); Mean Corpuscular Hemoglobin 25.7 pg (27.0-31.0); Mean Corpuscular Volume 81.5 fL (78.0-98.0); Mean Platelet Volume 9.6 fL (7.4-10.4); Monocytes 14 % (0-10); Neutrophil 58 % (42-75); Platelet Count 496 thou/uL (130-400); RBC Distribution Width 20.3 % (11.5-14.5); Red Blood Cell (RBC) Count 5.22 mill/uL (4.70-6.10); White Blood Cell (WBC) Count 25.1 thou/uL (4.8-10.8)
[2020-03-14 07:38] LABS: SARS-CoV-2 MS2 Positive; SARS-CoV-2 N Gene Negative; SARS-CoV-2 S Gene Negative; SARS-CoV-2 by NAA Not Detected (NotDetected); SARS-CoV-2 orf1ab Negative
[2020-03-14] MEDS ORDERED: Aspirin Chewable 81 MG TAB PO SCH (09:00)
[2020-03-14] MEDS ORDERED: Enoxaparin Sodium 40 MG/0.4 ML SYRINGE SC SCH (09:00)
[2020-03-14] MEDS ORDERED: Saccharomyces boulardii 250 MG CAP PO SCH (09:00)
[2020-03-14] MEDS ORDERED: Anagrelide HCl 0.5 MG CAP PO SCH (09:00)
[2020-03-14] MEDS ORDERED: Latanoprost 0.005% Ophth Soln 2.5 ml Bottle EA EYE SCH ×2 (09:00→21:00)
[2020-03-14] MEDS: Famotidine 20 MG TAB PO SCH (09:42)
--- NOTE | 2020-03-14 13:36 | PDOC.DS.DS ---
Provider - Provider Date of Admission: 03/13/20 15:03 Date of Discharge: 03/14/20 Admitting Provider: Marvin Carroll MD Primary Care Physician: Jose Eduardo Green MD Course - Hospital Course Hospital Course: 79-year-old male who was admitted for bilateral lower extremity stasis wound in which appear to be secondarily infected, patient did not have any fever or chills, patient has leukocytosis which is related with the polycythemia vera, patient was not meeting any sepsis criteria, his Covid test was negative, his blood culture is negative, patient had ultrasound which was negative for any DVT, while in hospital we gave him cefepime and vancomycin, wound care team was consulted, we kept him as observation status and we are discharging him on oral cephalexin and doxycycline. At this point patient does not need to be in the hospital, he will continue to get oral antibiotic therapy, advised to keep lower extremity elevated, advised to continue to do wound care, patient already has home health. All new medication prescription sent to his pharmacy. Patient also wants to go home today. Resuscitation Status: 03/13/20 15:16 Resuscitation Status Routine Resuscitation Status: FULL: Full Resuscitation - Labs Lab Results: 03/14/20 05:25 03/14/20 05:25 Abnormal Lab Results - Last 48 hrs 03/13/20 13:04: BUN 27 H, Albumin/Globulin Ratio 1.0 L 03/13/20 13:04: WBC 24.6 H, MCH 25.6 L, MCHC 30.6 L, RDW 20.6 H, Plt Count 513 H, Band Neuts % (Manual) 33 H, Lymphocytes % (Manual) 1 L, Metamyelocytes % (Man) 1 H, Myelocytes % 2 H, Plt Morphology Comment Appears Increased H, Polychromasia MODERATE = 3-4 cells H 03/14/20 05:25: Carbon Dioxide 22 L, Serum Total Protein 5.5 L, Albumin 2.9 L, Albumin/Globulin Ratio 1.1 L 03/14/20 05:25: WBC 25.1 H, Hgb 13.4 L, MCH 25.7 L, MCHC 31.5 L, RDW 20.3 H, Plt Count 496 H, Band Neuts % (Manual) 24 H, Lymphocytes % (Manual) 4 L, Monocytes % (Manual) 14 H Microbiology - Entire Visit 03/13/20 13:04 Venous blood - Right Arm Blood Culture - Preliminary Specimen has been received and culture in progress. No Growth to date. 03/13/20 13:04 Venous blood - Left Arm Blood Culture - Preliminary Specimen has been received and culture in progress. No Growth to date. - Physical Exam Vitals: Vital Signs (12 hours) Temp Pulse Resp BP Pulse Ox 03/14/20 12:00 98.0 F 70 16 122/79 96 03/14/20 08:00 97.6 F 75 18 124/81 94 L 03/14/20 04:35 98.6 F 74 18 130/71 97 Weight Admit Weight 183 lb Weight 183 lb Physical Exam: The patient was seen and examined on the day of discharge. Patient is currently alert and awake no acute distress Head normocephalic atraumatic Neck supple no JVD no meningeal signs of irritation Lungs clear to auscultation without any rhonchi or rales Cardiac S1-S2 regular, no murmur no gallop no rub Abdomen soft, bowel sounds present, nontender nondistended no organomegaly no mass Extremity bilateral lower extremity venous stasis wound noted, mild erythema, nontender Problem - Problem (1) Bilateral lower leg cellulitis Code(s): L03.116 - CELLULITIS OF LEFT LOWER LIMB; L03.115 - CELLULITIS OF RIGHT LOWER LIMB Status: Acute (2) Lower extremity venous stasis Code(s): I87.8 - OTHER SPECIFIED DISORDERS OF VEINS Status: Chronic (3) Polycythemia vera Code(s): D45 - POLYCYTHEMIA VERA Status: Chronic Plan - Discharge Medications Prescriptions: Doxycycline Hyclate 100 mg PO Q12HR #20 tablet Cephalexin 500 mg PO TID #30 capsule Home Medications: Medication Instructions Recorded Confirmed Type HYDROcodone/Acetaminophen [Organ 1 tab PO Q6HR PRN 10/07/18 03/13/20 History 10-325 Tablet] Aspirin 325 mg PO DAILY 03/13/20 03/13/20 History Ibuprofen [Advil] 200 mg PO Q6HR PRN 03/13/20 03/13/20 History Multivit-Min/FA/Lycopen/Lutein 1 each PO [id number] 03/13/20 03/13/20 History [Centrum Silver Tablet] Cephalexin 500 mg PO TID #30 capsule 03/14/20 Rx Doxycycline Hyclate 100 mg PO Q12HR #20 tablet 03/14/20 Rx Allergies: No Known Drug Allergies Allergy (Verified 03/13/20 18:50) - Discharge Instructions Activity:: Activity as Tolerated Nourishment:: Heart Healthy Diet Therapies:: Wound Care Equipment/Supplies:: Wound Care IV Therapy:: Not Applicable - Follow up Plan Referrals: Jose Eduardo Green MD [Primary Care Provider] - Disposition: HOME Quality - Care Measures CORE MEASURES:: N/A
[2020-03-14 16:23] VITALS: BP 125/83; TEMP 97.8
== END 2020-03-14 14:10 | disposition home or self-care (01) ==
LOC: ERS 11:54 → SURG A 15:03
PROVIDERS: ADMIT Internal Medicine; ATTEND Internal Medicine
DX: L03.115 Cellulitis of right lower limb (principal); L03.116 Cellulitis of left lower limb; I87.8 Other specified disorders of veins; D45 Polycythemia vera; F03.90 Unspecified dementia, unspecified severity, without behavioral disturbance, psychotic disturbance, mood disturbance, and anxiety; M19.90 Unspecified osteoarthritis, unspecified site; Z79.82 Long term (current) use of aspirin; Z79.899 Other long term (current) drug therapy; Z20.828 Contact with and (suspected) exposure to other viral communicable diseases
CPT/HCPCS: 80053 ×2; 83605; 85025 ×2; 87040; 93970; 96365; 96366 ×2; 96367; 96372; 96375; 97139; 99285; G0378 ×3; J2270 ×2; U0003; 36415; 87635; J0692; J1650; J3370; J3490; J7050